=== PATIENT | female | born 1990 | race Caucasian/White ===

== ENCOUNTER 2023-04-14 18:19 | Inpatient (IN) | payer OTHER ==
[~2023-04-14] VITALS: Ht 160 cm; Wt 56.3 kg
[2023-04-14] MEDS ORDERED: FLUO40CA PO (22:22)
[2023-04-14] MEDS ORDERED: PRAZ1CAP PO (22:22)
[2023-04-14] MEDS ORDERED: BUSP5TA PO (22:22)
[2023-04-14] MEDS ORDERED: HOME MED LIST COMPLETE! XX SCH (22:35)
[2023-04-15] MEDS ORDERED: FLUoxetine 20MG CAP PO ONE (00:05)
[2023-04-15] MEDS ORDERED: PRAZOSIN 1 MG CAP PO ONE (00:05)
[2023-04-15] MEDS ORDERED: busPIRone 5 MG TAB PO ONE (00:05)
[2023-04-15] MEDS ORDERED: MOM 30ML SUSPENSION UDC PO PRN (01:50)
[2023-04-15] MEDS ORDERED: IBUPROFEN 400MG TAB PO PRN (01:50)
[2023-04-15] MEDS ORDERED: ACETAMINOPHEN TAB 650MG DOSE (2X325MG) PO PRN (01:50)
[2023-04-15] MEDS ORDERED: MAALOX 30 ML SUSP *UDC PO PRN (01:50)
[2023-04-15] MEDS ORDERED: diphenhydrAMINE 25MG CAP PO PRN (01:50)
[2023-04-15] MEDS ORDERED: OLANZapine ORAL DISINTEGRATING TAB 5MG PO PRN (01:50)
[2023-04-15 03:13] VITALS: BP 130/90; TEMP 97.9; O2SAT 98
[2023-04-15 06:21] VITALS: BP 142/84; TEMP 98.6; O2SAT 97
[2023-04-15 18:00] VITALS: BP 139/87; TEMP 98.8
[2023-04-15] MEDS: traZODone 50 MG TAB PO PRN (20:53)
[2023-04-15] MEDS: DIVALPROEX 250MG TAB PO SCH (22:06)
[2023-04-15] MEDS: PRAZOSIN 1 MG CAP PO SCH (22:34)
[2023-04-16 06:57] VITALS: BP 120/81; TEMP 98.2; O2SAT 99
[2023-04-16 18:00] VITALS: BP 125/90; TEMP 97.6
[2023-04-16] MEDS: DIVALPROEX 250MG TAB PO SCH (21:29)
[2023-04-16] MEDS: PRAZOSIN 1 MG CAP PO SCH (21:30)
[2023-04-17] MEDS: traZODone 50 MG TAB PO PRN (00:14)
[2023-04-17 06:40] VITALS: BP 120/78; TEMP 97.8; O2SAT 97
[2023-04-17 15:11] VITALS: BP 149/91; TEMP 98.2; O2SAT 98
[2023-04-17 17:40] VITALS: BP 128/88
[2023-04-17] MEDS: PRAZOSIN 1 MG CAP PO SCH (21:35)
[2023-04-17] MEDS: DIVALPROEX 250MG TAB PO SCH (21:36)
[2023-04-18 06:52] VITALS: BP 111/70; TEMP 98.4; O2SAT 99
[2023-04-18] MEDS: busPIRone 5 MG TAB PO SCH ×3 (10:20→21:55)
[2023-04-18 16:48] VITALS: BP 121/71; TEMP 98.8; O2SAT 98
[2023-04-18 21:55] VITALS: BP 121/71
[2023-04-18] MEDS: PRAZOSIN 1 MG CAP PO SCH (21:55)
[2023-04-18] MEDS: DIVALPROEX 250MG TAB PO SCH (21:55)
[2023-04-19 06:56] VITALS: BP 141/83; TEMP 98.1; O2SAT 97
[2023-04-19] MEDS ORDERED: BUSP5TA PO (08:14)
[2023-04-19] MEDS ORDERED: DEPA250T32 PO (08:14)
[2023-04-19] MEDS ORDERED: MINI1CAP PO (08:14)
[2023-04-19] MEDS: busPIRone 5 MG TAB PO SCH (08:33)
== END 2023-04-19 11:58 | disposition home or self-care (01) | DRG 753 ==
LOC: M ED 18:19 → M ED INP 04-15 01:48 → M PSY 04-15 02:30 → M ED 04-15 02:35 → M PSY 04-15 07:59
PROVIDERS: ADMIT Student in an Organized Health Care Education/Training Program; ATTEND Student in an Organized Health Care Education/Training Program
DX: F31.89 Other bipolar disorder (principal); F31.81 Bipolar II disorder; R45.851 Suicidal ideations; Z79.899 Other long term (current) drug therapy; F41.9 Anxiety disorder, unspecified; F60.3 Borderline personality disorder; F12.90 Cannabis use, unspecified, uncomplicated